=== PATIENT | male | born 1985 | race Caucasian/White ===

== ENCOUNTER 2019-04-28 14:20 | Emergency (ER) | payer BC, SELFPAY ==
[2019-04-28 14:21] VITALS: BP 146/84; PULSE 96; RESP 16; TEMP 36.4; O2SAT 100; BMI 28.0
--- NOTE | 2019-04-28 15:07 | ED.VIS.GEN ---
History of Present Illness Chief Complaint: Numb/Ting Detail of Chief Complaint: Facial numbness today Informant: Patient Onset: Today Current Severity: Mild Maximum Severity: Mild Narrative: Patient presents with flulike symptoms for the last 4 days. He reports having fever as well as body aches, cough, congestion. states that once she went and got a thermometer is highest temperature that she measured was 100.4. Patient does report a headache and states that secondary to prior concussions he tends to get migraines when he gets ill. Today he states it feels like his face is numb. He does not have sinus pressure. - Past Medical History (1) H/O multiple concussions Status: Chronic (2) Migraine Status: Chronic Past Medical History - Allergies and Home Meds Allergies/Adverse Reactions: Allergies No Known Allergies Allergy (Verified 04/28/19 14:23) Primary Care Physician: Care Physician,No Primary [Primary Care Provider] - Prior records reviewed: Yes Lives: Spouse/ Significant Other Smoking Status: Current every day smoker Review of Systems General: Reports: Fever, Sweats Eyes: Denies: Visual changes - bilaterally ENT: Denies: Bilateral ear pain Cardiovascular: Denies: Chest pain Respiratory: Reports: Cough Gastrointestinal: Denies: Vomiting, Diarrhea Musculoskeletal: Reports: Myalgias. Denies: Extremity Pain Skin: Denies: Rash Neurological: Reports: Headache, Numbness. Denies: Weakness Psych: Denies: Depression Allergy: Denies: Uticaria Physical Exam Vital Signs/Narrative: Vital Signs Temp Pulse Resp BP Pulse Ox 04/28/19 14:21 97.6 F L 96 16 146/84 H 100 Inital Vital Signs reviewed: Yes General: Well nourished, Well developed Head: Normocephalic ENT: Dry mucous membranes Neck: Supple, - - No meningismus Cardiovascular: Regular rate, Regular rhythm Respiratory: No distress, CTA bilaterally Abdomen: Soft, Nontender, Hypoactive bowel sounds Skin: Normal color Neurological: Alert, Oriented x3, Normal Strength, - - Reported decrease sensation to light touch over the face. Normal sensation otherwise. Psychological: Normal affect Diagnostic/Tx/Re-eval Impressions Chest X-Ray 04/28/19 15:35 IMPRESSION: Normal x-ray examination of the chest. Electronically Signed: Olman Carey, at 15:50 EST , Service support , 04/28/19 15:35 Chest PA and Lateral [RAD] Stat Laboratory Results 04/28/19 04/28/19 15:25 15:25 WBC 4.9 RBC 5.42 Hgb 16.4 Hct 47.5 MCV 87.6 MCH 30.3 MCHC 34.5 RDW Std Deviation 41.3 RDW Coeff of Manny 13.2 Plt Count 153 MPV 12.9 H Immature Gran % (Auto) 0.200 Neut % (Auto) 68.5 Lymph % (Auto) 16.8 L [place] % (Auto) 13.7 H Eos % (Auto) 0.2 Baso % (Auto) 0.6 Absolute Neuts (auto) 3.4 Absolute Lymphs (auto) 0.82 L Nucleated RBC % 0 Sodium 139 Potassium 3.3 L Chloride 109 H Carbon Dioxide 24.0 Anion Gap 6 BUN 13 Creatinine 0.94 Estim Creat Clear Calc 99.92 Est GFR (MDRD) Af Amer 118 Est GFR (MDRD) Non-Af 98 BUN/Creatinine Ratio 13.9 Glucose 112 H Calcium 9.0 - Medical Decision Making Patient was given IV fluids along with Toradol, Reglan, and Benadryl. On repeat evaluation he reports feeling significantly improved. Any numbness sensation he had to the face is completely resolved. Patient be treated with potassium replacement. ED Disposition - Plan for ED Patient: Disposition: Home or Assisted Living Diagnosis: Viral syndrome, Migraine Instructions: VIRAL SYNDROME (Adult) Prescriptions: Potassium Chloride [K-Dur] 20 meq PO BID #7 tab Transmission Status: Pending to [facility]/pharmacy #[id number] Referrals: Raphael Walls MD [NON-STAFF] - As Needed
[2019-04-28] MEDS: 0.9% Normal Saline 1,000 ML 1000 ML IV (15:21)
[2019-04-28] MEDS: Metoclopramide 10 MG/2 ML Vial IV (15:22)
[2019-04-28] MEDS: DiphenhydrAMINE 50 MG/ML Syringe 25 MG IV (15:22)
[2019-04-28] MEDS: Ketorolac 30 MG/ML Syringe IV (15:22)
--- NOTE | 2019-04-28 15:35 | RAD_ITS ---
STUDY: X-RAY CHEST REASON FOR EXAM: Male, 33 years old. COUGH TECHNIQUE: PA and lateral views of the chest. COMPARISON: None. FINDINGS: The lungs are clear and expanded. Scattered calcified granulomas. There is no demonstrated pleural abnormality. Normal size heart. Normal mediastinum and marco. Normal visualized pulmonary arteries. Normal visualized aortic arch and descending thoracic aorta. Normal visualized thoracic spine. Normal visualized ribs, clavicles, and shoulders. There is no demonstrated abnormality of the visualized soft tissue structures of the upper abdomen. RAD/Chest PA and Lateral IMPRESSION: Normal x-ray examination of the chest. Electronically Signed: Olman Carey, at 15:50 EST , Service support ,
[2019-04-28 15:39] LABS: Absolute Lymphocyte Count 0.82 X10^3/uL (0.83-4.51); Absolute Neutrophil Count 3.4 X10^3/uL (2.0-7.7); Basophil# 0.03 X10^3/uL; Basophil% 0.6 % (0-1); Eosinophil# 0.01 X10^3/uL; Eosinophils% 0.2 % (0-5); Hematocrit 47.5 % (40-54); Hemoglobin 16.4 g/dL (13.0-16.5); Lymphocyte # 0.82 X10^3/ul (4.0); Lymphocyte % 16.8 % (19-41); Mean Corp Hgb Conc 34.5 g/dL (32-36); Mean Corpuscular Hgb 30.3 pg (27.0-32.0); Mean Corpuscular Volume 87.6 fL (80-94); Mean Platelet Vol. 12.9 fl (6.2-12.0); Monocyte# 0.67 X10^3/uL; Monocyte% 13.7 % (0-10); NRBC Flagged by Analyzer 0 % (0-5); Neutrophil # 3.35 X10^3/uL (2.7-7.7); Neutrophil % 68.5 % (47-70); Platelet Count 153 K/mm3 (150-450); RBC Distribution Width CV 13.2 % (11.6-14.6); RBC Distribution Width SD 41.3 fl (35.1-43.9); Red Blood Count 5.42 M/mm3 (4.6-6.2); White Blood Count 4.9 K/mm3 (4.4-11.0)
[2019-04-28 16:00] LABS: Anion Gap 6 (5-15); BUN 13 mg/dL (7-18); BUN/Creat Ratio 13.9 RATIO (10-20); Chloride 109 mmol/L (98-107); Creatinine, Serum 0.94 mg/dL (0.70-1.30); EST Glomerular Filtration Rate 98 mL/min (>60); Est Glom Filt Rate - Afr Amer 118 mL/min (>60); Estimated Creatinine Clearance 99.92 ml/min; Glucose 112 mg/dL (74-106); Potassium 3.3 mmol/L (3.5-5.1); Sodium Level 139 mmol/L (136-145)
[2019-04-28 16:35] VITALS: PULSE 75; RESP 16; O2SAT 98
== END 2019-04-28 16:36 | disposition home or self-care (01) ==
PROVIDERS: Emergency Provider Emergency Medicine
DX: B34.9 Viral infection, unspecified (principal); R05 Cough; J34.89 Other specified disorders of nose and nasal sinuses; R50.9 Fever, unspecified; G43.909 Migraine, unspecified, not intractable, without status migrainosus; F17.200 Nicotine dependence, unspecified, uncomplicated
CPT/HCPCS: 71046; 80048; 85025; 96361; 96374; 96375; 99284; J7030; A4216

== ENCOUNTER 2019-09-04 14:41 | Emergency (ER) | payer BC, SELFPAY ==
[2019-09-04 14:41] VITALS: BP 117/83; PULSE 94; RESP 16; TEMP 37; O2SAT 97; BMI 28.9
--- NOTE | 2019-09-04 15:19 | ED.DCSUM_ITS ---
- ER Visit Summary Date of Service: 09/04/19 Chief Complaint: [Redness and swelling to the right great toe] History of Present Illness: The patient is a 34 M [presents to the emergency department with redness and swelling to the right great toe that started about 3 days ago. Initially the discomfort was mild but is progressively gotten worse.] Patient denies any fevers. He denies recent illness. Patient denies any trauma to the toe. No history of gout. Patient does wear steel toed boots at work. Physical Examination: [HEENT-PERRLA, EOMI. Cranial nerves II through XII grossly intact. TMs clear. Mucous membranes moist. No adenopathy. Cardiovascular-regular rate and rhythm without murmur or ectopy Lungs-clear to auscultation, chest wall stable without crepitus or subcu emphysema Abdomen-normoactive bowel sounds, soft, nontender, no rebound or rigidity, no peritoneal signs. Extremities-intact ?4, normal range of motion, normal pulses. Right great toe- patient does have erythema and some mild soft tissue swelling over the medial aspect of the proximal phalanx of the great toe. No lymphangitic streaking noted. No fluctuance or definite abscess noted. Patient is able to flex and extend the toe. He really has no tenderness over the MTP joint. There is no erythema over the MTP joint.] I do not appreciate any breaks in the skin. Test Results: [None indicated] Emergency Department Course and Treatment: [Patient was started on Keflex and Bactrim. I suspect cellulitis. I do not feel clinically his exam is consistent with gout.] Treatment Plan: [She will be treated with Keflex and Bactrim. Patient will be referred to podiatry for follow-up within the next 3 to 5 days.] Disposition: [Discharged home in stable condition.] Impression: [Cellulitis right great toe] This note was generated with [employer] dictation software. It may contain incorrect words, spelling, and punctuation that were not noted in review of the chart prior to signing ED Disposition - Plan for ED Patient: Referrals: Care Physician,No Primary [Primary Care Provider] -
--- NOTE | 2019-09-04 15:22 | ED.DEP ---
ED Disposition - Plan for ED Patient: Instructions: ED Cellulitis Prescriptions: Smz/Tmp Ds [Bactrim Ds] 1 tab PO BID #20 tab Prescription Printed Cephalexin [Keflex] 500 mg PO Q6 #40 cap Prescription Printed Referrals: Care Physician,No Primary [Primary Care Provider] - Andrzej Jensen DPM [STAFF PHYSICIAN] - 2 Days
[2019-09-04] MEDS: Smz/Tmp Ds Tablet 1 TABLET PO (16:11)
[2019-09-04] MEDS: Cephalexin 250 MG Capsule 500 MG PO (16:11)
[2019-09-04 16:14] VITALS: BP 115/78; PULSE 59; RESP 18
== END 2019-09-04 16:17 | disposition home or self-care (01) ==
LOC: ED 15:33
PROVIDERS: Emergency Provider Emergency Medicine
DX: L03.031 Cellulitis of right toe (principal); Z72.0 Tobacco use
CPT/HCPCS: 99283

== ENCOUNTER → 2019-09-07 | Outpatient (CLI) | payer BC, SELFPAY ==
[2019-09-04 14:41] VITALS: BMI 28.9
[2019-09-07 17:07] LABS: Body Fluid QC Type(s) BF1Q; Source- Body Fluid SYNOVIAL
[2019-09-08 11:54] LABS: Pathologist Review Reviewed
== END | disposition home or self-care (01) ==
LOC: LABSPEC 13:43
PROVIDERS: Referring Provider Podiatrist; Visit Provider Podiatrist
DX: M10.9 Gout, unspecified (principal)
CPT/HCPCS: 87070; 87075; 87205; 89060

== ENCOUNTER 2020-02-09 10:30 | Outpatient (RCR) | payer BC, SELFPAY ==
--- NOTE | 2020-01-31 16:10 | HP.OTEVAL_ITS ---
Patient's Visit Information EUGENE ESCOBAR is a 34 year old M, referred to Occupational Therapy by Dr. Michael Thurman MD, with a diagnosis of right CTS. Date of Evaluation: 01/31/20 Occupational Therapist: GABBY Marley/Adelia, CHT - Subjective This 34 year old male was seen fot OT eval with dx of right CTS. pt states he has had tingling/numbness for about 5 months. pt states he struggles with wearing the braces at night- states he has increase in tingling. 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 pt states he lifts 20#-80# depending on job. pt states he is willing to have any type of help at this time because its hard for him to sleep at night. 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 with ALD and IADls. 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 with ADls and IADls at this time. Pt would benefit from skilled OT services 2x week for 4 weeks. Today therapy ed. pt on CTS, stretching and median nerve glides. pt demo understanding and agree to POC. Rehabilitation Potential: Good - Anticipated Interventions A/AAROM/PROM, Triggerpoint Release, Modalities, Orthoses, Joint Protectio n/Energy Conservation, Ergonomic Education - Visit Plan Frequency: 1-2x /Week Duration: 4 Weeks TEXT: Thank you for the opportunity to evaluate your patient. For Medicare and Medicare HMO plans, please review the plan of care and approve it. It will need to be FAXED BACK to us at [phone] for Medicare purposes. Please let me know if there are questions or concerns regarding this plan of care. Physician Signature: Date:__
--- NOTE | 2020-03-26 10:40 | HP.OTDCNRP_ITS ---
EUGENE ESCOBAR was seen in my office for initial evaluation on 01/31/20. The following Plan of Care was established for this patient: Initial Frequency: 1-2x /Week Initial Duration: 4 Weeks Plan: cont with US to ulnar nerve region - and trigger point release to right forearm Anticipated Interventions: A/AAROM/PROM, Triggerpoint Release, Modalities, Orthoses, Joint Protection/Energy Conservation, Ergonomic Education This patient was last seen in our office 02/09/20. Pertinent comments regarding their Occupational therapy will appear below: pt was seen for 4 OT visits with no change in pain- pt has not scheduled further apts and due to time lapse in [facility] pt d/c. At this point I will be discontinuing this patient from occupational therapy. I would be happy to see this patient again in the future if found appropriate by the physician. Thank you! Mary Mahan, OTR/L, CHT
== END 2020-02-09 19:00 | disposition home or self-care (01) ==
LOC: OT 10:30
PROVIDERS: PCP Family Medicine; Referring Provider Family Medicine; Visit Provider Family Medicine
DX: G56.01 Carpal tunnel syndrome, right upper limb (principal)
CPT/HCPCS: 97035; 97110; 97140; 97166; 97530

== ENCOUNTER → 2020-05-25 07:10 | Outpatient (CLI) | payer BC, SELFPAY ==
--- NOTE | 2020-05-25 08:11 | NEURO_ITS ---
NCS and/or EMG Patient Report Ordering Doctor: Michael Thurman DATE OF SERVICE: 05/25/20 Indication: Two years of progressive right upper extremity paresthesias. Symptoms are intermittently exacerbated by activity (e.g. sleep, driving, weight lifting). Evaluate for cervical radiculopathy and/or peripheral nerve entrapment. Findings: Nerve conduction studies were performed in the right upper extremity. The right median motor study recording the abductor pollicis brevis showed a slightly reduced amplitude, prolonged distal latency and markedly slowed conduction velocity. The right ulnar motor study recording the abductor digiti minimi showed a normal amplitude, normal distal latency and normal conduction velocity. No conduction block or focal slowing was present across the elbow. Right median- ulnar lumbrical / interosseous motor latencies showed a prolonged median latency compared to the ulnar. The right median sensory response recording digit two showed a reduced amplitude, prolonged latency and markedly slowed conduction velocity. The right ulnar sensory response recording digit five showed a normal amplitude, latency and conduction velocity. The right radial sensory response recording over the extensor snuff box showed a normal amplitude, latency and conduction velocity. Needle EMG of the right upper extremity muscles was performed. No denervation was seen in any muscle. The right abductor pollicis brevis demonstrated motor units which were large amplitude, long duration with normal phases and recruitment. All other examined muscles revealed normal motor unit morphology, activation and recruitment patterns. Impression: This is an abnormal study. 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 The pathophysiology is predominantly demyelination with some evidence of secondary axonal loss. These findings are compatible with the clinical diagnosis of carpal tunnel syndrome. In addition, there is no electrophysiologic evidence of a superimposed cervical radiculopathy in the right upper extremity. Luis Mosqueda D.O.
== END ==
PROVIDERS: PCP Family Medicine; Referring Provider Family Medicine; Visit Provider Family Medicine
DX: G56.20 Lesion of ulnar nerve, unspecified upper limb (principal)
CPT/HCPCS: 95886; 95910

== ENCOUNTER 2021-01-22 10:07 | Day surgery (SDC) | payer OTHER, SELFPAY ==
[2021-01-22] VITALS (8 sets, daily range): BP systolic 89–117; BP diastolic 52–74; PULSE 43–63; RESP 16–20; TEMP 7.7–46; O2SAT 94–100; BMI 28.0
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
[2021-01-22] MEDS: Lactated Ringers 1,000 ML 100 ML IV (10:59)
[2021-01-22] MEDS: Cefazolin 2 GM in 0.9% Normal Saline 100 ML IV (11:25)
[2021-01-22] MEDS: Lidocaine 1%/Epi 1:200 (30ml) 30 ML AMPUL (11:42)
--- NOTE | 2021-01-22 11:50 | PCM.OPRPT ---
Report of Operation Date of Procedure: 01/22/21 Description of Surgical Findings:: Preoperative diagnosis; right carpal tunnel syndrome Postoperative diagnosis; same Procedure: Right open carpal tunnel release Anesthesia: Local with MAC Tourniquet time; 11 minutes 250 mm Hg Complications: None Indication for procedure; This is a 35-year-old male with long-standing symptoms consistent with carpal tunnel syndrome the patient did have electrodiagnostic evidence of this and has failed conservative treatment. Risks benefits and alternatives were reviewed including risks of bleeding infection nerve artery tissue damage need for further surgery and continued pain and symptoms, hypersensitivity to scar and Pillar pain. Procedure; The patient was met in the preoperative holding area the operative extremity was identified by both patient and physician and was marked the patient was met by anesthesia and brought back to the operating room and transferred to the operating table in the supine position. Aanesthesia was started. A well-padded tourniquet was placed on the operative upper extremity. The patient was prepped and draped in the usual sterile fashion. A timeout was called to ensure the proper patient procedure and extremity were being contemplated. 0.5 percent Marcaine with epinephrine was injected into the incisional area. An Esmarch was used to exsanguinate the extremity. The tourniquet was inflated to 250 mmHg. A midline incision was made with a 15 blade scalpel between the thenar and hypothenar eminence. This was carried down through the skin and subcutaneous tissue. Italo retractors were then used, a deep blade scalpel was used to make a deep incision in the palmar aponeurosis. The italo retractors were then placed deep to this and the transverse carpal ligament was identified a perforation was made with a scalpel and a Littler scissors were used to complete the release of the transverse carpal ligament distally under direct visualization with the tips facing ulnarly until the perivascular fat was reached. Then turning our attention proximally using a tension slide technique the proximal extent of the transverse carpal ligament was released . There was noted to be hourglass configuration to the median nerve and hypertrophy of the transverse carpal ligament without other findings. The wound was thoroughly irrigated and was closed with 4-0 nylon vertical mattress stitches. Dressing was applied in the form of xeroform 4 x 4, web roll and an aria wrap. Tourniquet was let down there is no intraoperative complications patient tolerated the procedure well and was transferred to the PACU. All counts were correct.
--- NOTE | 2021-01-22 11:52 | PCM.DC ---
Discharge Instructions Dressing / Incision Call your doctor if you observe: Shortness of breath and Chest pain Additional Dressing/Incision Instructions:: Ice and elevate operative extremity next 72 hours. Keep dressing on clean and dry for 48 hours then may remove and allow warm soapy water to rinse over incision but do not submerge until sutures are out. Then apply bandaid over incision and change daily. encourage finger range of motion. Not lift more than 1/2 pound. Minimize narcotic use only as needed and directed, may use OTC NSAID and Tylenol to supplement/substitute for pain control. Follow Up Care Please Follow Up With: Costa Bustos DO When: 2 weeks Test Results: Test results from this visit will be discussed in further detail at your follow-up appointment, if applicable. Discharge Plan Admission Attending Provider: Costa Bustos Primary Care Provider: Michael Thurman Discharge Orders/Prescriptions Prescriptions: New oxycodone 5 mg tablet 5 mg PO Q4H PRN (Reason: pain) 5 Days Qty: 15 RF: 0 No Action NK RF: 0 Referrals / Follow Up: Michael Thurman MD [Primary Care Provider] - Disposition Disposition (needs filled in before D/C Order can be placed): Home, Self Care
== END 2021-01-22 13:30 | disposition home or self-care (01) ==
LOC: SDC 10:07 → AC 10:08
PROVIDERS: PCP Family Medicine; Referring Provider Orthopaedic Surgery; Visit Provider Orthopaedic Surgery
PROC: (CPT 64721; principal; 2021-01-22 11:30)
DX: G56.01 Carpal tunnel syndrome, right upper limb (principal); G25.81 Restless legs syndrome; F17.210 Nicotine dependence, cigarettes, uncomplicated
CPT/HCPCS: 01810; 64721; J7120; J2405